=== PATIENT | male | born 1960 | race African-American/Black ===

== ENCOUNTER 2021-12-29 11:32 | Emergency (ER) | payer OTHER ==
[~2021-12-29] VITALS: Ht 172.7 cm; Wt 73.0 kg
[2021-12-29] MEDS ORDERED: AMLODIPINE 10MG TABLET PO STA (12:26)
[2021-12-29] MEDS ORDERED: ACETAMINOPHEN 325MG TABLET PO ONE (12:30)
[2021-12-29] MEDS ORDERED: METOCLOPRAMIDE HCL 10MG/2ML VIAL IV ONE (12:30)
[2021-12-29 12:46] LABS: BASOPHILS % 0.3 % (0.0-2.0); HEMATOCRIT. 38.5 % (42.0-52.0); LYMPHOCYTES % 17.1 % (20.0-50.0); MEAN CORPUSCULAR VOLUME 94.9 fL (80.0-94.0); MEAN PLATELET VOLUME 7.3 fl (7.4-10.4); MONOCYTES % 4.6 % (2.0-8.0); PLATELET 292 x1000/uL (130-400); RED BLOOD CELL COUNT 4.06 mill/uL (4.7-6.1); RED CELL DISTRIBUTION WIDTH 14.1 % (11.6-14.6)
[2021-12-29 12:53] LABS: CHLORIDE 104 mEq/L (98-107)
[2021-12-29] MEDS ORDERED: CLONIDINE 0.2MG TABLET PO ONE (14:00)
[2021-12-29 16:46] VITALS: BP 155/103
[2021-12-29] MEDS ORDERED: AMLO10TA80 MT (16:47)
== END 2021-12-29 17:13 | disposition home or self-care (01) ==
LOC: ER 11:32
DX: S09.8XXA Other specified injuries of head, initial encounter (principal); I10 Essential (primary) hypertension; R42 Dizziness and giddiness; Z86.73 Personal history of transient ischemic attack (TIA), and cerebral infarction without residual deficits; Y08.89XA Assault by other specified means, initial encounter; V43.52XA Car driver injured in collision with other type car in traffic accident, initial encounter; Y93.89 Activity, other specified; Y92.89 Other specified places as the place of occurrence of the external cause
CPT/HCPCS: 36415; 70450; 80048; 85025; 93005; 96374; 99285; J2765

== ENCOUNTER 2022-07-27 02:49 | Emergency (ER) | payer OTHER ==
[~2022-07-27] VITALS: Ht 172.7 cm; Wt 80.0 kg
[~2022-07-27 02:49] MED LIST: AMLO10TA80 MT
[2022-07-27 07:00] VITALS: BP 158/100
[2022-07-27] MEDS ORDERED: ACETAMINOPHEN WITH CODEINE 300/30MG TABLET PO ONE (07:00)
[2022-07-27] MEDS ORDERED: KETOROLAC 60MG/2ML VIAL IM ONE (07:00)
[2022-07-27] MEDS ORDERED: IBUP-2028 PO (07:34)
[2022-07-27] MEDS ORDERED: T3 PO (07:34)
[2022-07-27] MEDS ORDERED: BO1 TP (07:34)
== END 2022-07-27 07:48 | disposition home or self-care (01) ==
LOC: ER 02:49
DX: M54.50 Low back pain, unspecified (principal); I10 Essential (primary) hypertension
CPT/HCPCS: 72100; 96372; 99283; J1885